=== PATIENT | female | born 1960 | race Caucasian/White ===

== ENCOUNTER 2022-03-04 21:49 | Emergency (ER) | payer SELFPAY ==
[~2022-03-04 21:49] MED LIST: GLIP10TA11 PO; INSU3INS6 SQ; LOSA25TA27 PO; METF1000 PO
--- NOTE | 2022-03-04 22:00 | NUR ---
Patient was called to be triaged but was not present in the waiting room or outside of ER.
--- NOTE | 2022-03-04 22:30 | NUR ---
Patient was called to be triaged but was not present in the waiting room or outside of ER.
--- NOTE | 2022-03-04 23:15 | NUR ---
Patient was called to be triaged but was not present. PATIENT WAS NOT TRIAGED OR SEEN BY [facility].
== END 2022-03-04 23:16 | disposition left against medical advice (07) ==
LOC: ER 21:53
DX: Z53.21 Procedure and treatment not carried out due to patient leaving prior to being seen by health care provider (principal)